=== PATIENT | female | born 1990 | race African-American/Black ===

== ENCOUNTER 2020-06-23 16:27 | Emergency (ER) | payer MEDICAID ==
[~2020-06-23] VITALS: Ht 167.6 cm; Wt 68.0 kg
[2020-06-23 16:29] VITALS: BP 141/89
== END 2020-06-23 18:54 | disposition left against medical advice (07) ==
LOC: ER 16:28
DX: R52 Pain, unspecified (principal); Z53.21 Procedure and treatment not carried out due to patient leaving prior to being seen by health care provider